=== PATIENT | male | born 1990 | race Caucasian/White ===

== ENCOUNTER 2018-05-01 22:04 | Emergency (ER) | payer SELFPAY ==
[2018-05-01] MEDS ORDERED: methylPREDNISolone Sodium Succinate 125 MG/2 ML SDV IM ONE (22:16)
[2018-05-01] MEDS ORDERED: diphenhydrAMINE 50 MG Cap PO ONE (22:16)
--- NOTE | 2018-05-01 22:25 | EDM.PDOC ---
ED HPI GENERAL MEDICAL PROBLEM - General Chief Complaint: Allergic Reaction Stated Complaint: SWELLING OF THROAT THINK ALERGIC REACTION. Time Seen by Provider: 05/01/18 22:18 - History of Present Illness INITIAL COMMENTS - FREE TEXT/NARRATIVE: HISTORY AND PHYSICAL: History of present illness: Patient's 27-year-old white male presents with concern of throat swelling and 3 had a milkshake earlier today he denies any similar episodes in the past he states he has had no fever chills nausea vomiting or other concerns he had no trouble breathing or speaking. No tongue or lip swelling no rash no other complaints Review of systems: As per history of present illness and below otherwise all systems reviewed and negative. Past medical history: As per history of present illness and as reviewed below otherwise noncontributory. Surgical history: As per history of present illness and as reviewed below otherwise noncontributory. Social history: No reported history of drug or alcohol abuse. Family history: As per history of present illness and as reviewed below otherwise noncontributory. Physical exam: HEENT: Atraumatic, normocephalic, pupils reactive, negative for conjunctival pallor or scleral icterus, mucous membranes moist, throat minimal injection with some edema noted including involvement of the uvula, neck supple, nontender , trachea midline. Lungs: Clear to auscultation, breath sounds equal bilaterally, chest nontender. Heart: S1S2, regular, negative for clicks, rubs, or JVD. Abdomen: Soft, nondistended, nontender. Negative for masses or hepatosplenomegaly. Negative for costovertebral tenderness. Pelvis: Stable nontender. Genitourinary: Deferred. Rectal: Deferred. Extremities: Atraumatic, negative for cords or calf pain. Neurovascular unremarkable. Neuro: Awake, alert, oriented. Cranial nerves II through XII unremarkable. Cerebellum unremarkable. Motor and sensory unremarkable throughout. Exam nonfocal. Diagnostics: Rapid strep Therapeutics: Solu-Medrol 125 mg IM Benadryl 50 mg IM Impression: #1 uvulitis etiology be determined rule out allergic reaction Definitive disposition and diagnosis as appropriate pending reevaluation and review of above. throat Pain Score (Numeric/FACES): 8 - Related Data Allergies Allergy/AdvReac Type Severity Reaction Status Date / Time No Known Allergies Allergy Verified 05/01/18 22:07 Home Meds: Home Meds . [No Known Home Meds] 02/14/15 [History] Past Medical History - Past Health History Medical/Surgical History: Denies Medical/Surgical History HEENT History: Reports: None Cardiovascular History: Reports: None Respiratory History: Reports: None Gastrointestinal History: Reports: None Genitourinary History: Reports: None Musculoskeletal History: Reports: None Neurological History: Reports: None Psychiatric History: Reports: None Endocrine/Metabolic History: Reports: None Hematologic History: Reports: None Immunologic History: Reports: None Oncologic (Cancer) History: Reports: None Dermatologic History: Reports: None - Infectious Disease History Infectious Disease History: Reports: None - Past Surgical History Head Surgeries/Procedures: Reports: None Male Surgical History: Reports: None Social & Family History - Family History Family Medical History: Noncontributory - Tobacco Use Smoking Status *Q: Never Smoker - Caffeine Use Caffeine Use: Reports: Coffee - Recreational Drug Use Recreational Drug Use: No ED ROS ALLERGIC REACTION - Review of Systems Review Of Systems: ROS reveals no pertinent complaints other than HPI. ED EXAM GENERAL NO PERIP PULSE - Physical Exam Exam: See Below (See dictation) Course - Vital Signs Last Recorded V/S: Last Vital Signs Temp 36.1 C 05/01/18 22:08 Pulse 80 05/01/18 22:08 Resp 18 05/01/18 22:08 BP 141/72 H 05/01/18 22:08 Pulse Ox 98 05/01/18 22:08 - Orders/Labs/Meds Orders: Active Orders 24 hr Category Date Time Status CULTURE STREP A CONFIRMATION [RM] Stat Lab 05/01/18 22:17 Results STREP SCRN A RAPID W CULT CONF [RM] Stat Lab 05/01/18 22:17 Ordered Meds: Medications Discontinued Medications Generic Name Dose Route Start Last Admin Trade Name Freq PRN Reason Stop Dose Admin Diphenhydramine HCl 50 mg 05/01/18 22:16 05/01/18 22:20 Benadryl PO 05/01/18 22:17 50 mg ONETIME ONE Administration Methylprednisolone Sodium Succinate 125 mg 05/01/18 22:16 05/01/18 22:20 Solu-Medrol IM 05/01/18 22:17 125 mg ONETIME ONE Administration Departure - Departure Time of Disposition: 22:59 Disposition: Home, Self-Care 01 Condition: Good Clinical Impression: Uvulitis, Allergic reaction - Discharge Information *PRESCRIPTION DRUG MONITORING PROGRAM REVIEWED*: Not Applicable *COPY OF PRESCRIPTION DRUG MONITORING REPORT IN PATIENT CLIFF: Not Applicable Referrals: PCP,None [Primary Care Provider] - Additional Instructions: The following information is given to patients seen in the emergency department who are being discharged to home. This information is to outline your options for follow-up care. We provide all patients seen in our emergency department with a follow-up referral. The need for follow-up, as well as the timing and circumstances, are variable depending upon the specifics of your emergency department visit. If you don't have a primary care physician on staff, we will provide you with a referral. We always advise you to contact your personal physician following an emergency department visit to inform them of the circumstance of the visit and for follow-up with them and/or the need for any referrals to a consulting specialist. The emergency department will also refer you to a specialist when appropriate. This referral assures that you have the opportunity for followup care with a specialist. All of these measure are taken in an effort to provide you with optimal care, which includes your followup. Under all circumstances we always encourage you to contact your private physician who remains a resource for coordinating your care. When calling for followup care, please make the office aware that this follow-up is from your recent emergency room visit. If for any reason you are refused follow-up, please contact the [facility] emergency department at and asked to speak to the emergency department charge nurse. Medrol Benadryl as prescribed follow-up primary medical doctor as needed as discussed avoid possible allergens as discussed return as needed as discussed - My Orders Last 24 Hours: My Active Orders 05/01/18 22:17 CULTURE STREP A CONFIRMATION [RM] Stat STREP SCRN A RAPID W CULT CONF [RM] Stat - Assessment/Plan Last 24 Hours: My Active Orders 05/01/18 22:17 CULTURE STREP A CONFIRMATION [RM] Stat STREP SCRN A RAPID W CULT CONF [RM] Stat
[2018-05-01 23:15] VITALS: BP 104/62
== END 2018-05-01 23:00 | disposition home or self-care (01) ==
LOC: MW.ED 22:04
DX: T78.1XXA Other adverse food reactions, not elsewhere classified, initial encounter (principal); K12.2 Cellulitis and abscess of mouth
CPT/HCPCS: 87081; 87880; 96372; 99283; A9270; J2930

== ENCOUNTER 2018-10-18 15:18 | Emergency (ER) | payer SELFPAY ==
[2018-10-18 15:28] VITALS: BP 113/53
--- NOTE | 2018-10-18 15:56 | EDM.PDOC ---
ED HPI GENERAL MEDICAL PROBLEM - General Chief Complaint: Upper Extremity Injury/Pain Stated Complaint: hand injury Time Seen by Provider: 10/18/18 15:23 Source of Information: Reports: Patient History Limitations: Reports: No Limitations - History of Present Illness INITIAL COMMENTS - FREE TEXT/NARRATIVE: HISTORY AND PHYSICAL: History of present illness: Patient is a 27-year-old male who presents to the ED today with concerns of left hand pain. He states this happened 2-3 days ago when his left finger and hand swelled up. At the swelling has since gone down but the pain and weakness remain the same. He states that he feels as if his clinical staff anesthesiologist is weak. He has taken Tylenol and ibuprofen as needed for pain. He denies any injury to the hand. He states that he does work using his hands but does not recall a specific event that would cause this. Her had any prior injury to this area or any prior concerns. Patient denies any health history. Review of systems: As per history of present illness and below otherwise all systems reviewed and negative. Past medical history: As per history of present illness and as reviewed below otherwise noncontributory. Surgical history: As per history of present illness and as reviewed below otherwise noncontributory. Social history: See social history for further information Family history: As per history of present illness and as reviewed below otherwise noncontributory. Physical exam: General: Patient is alert, oriented, and in no acute distress. He is sitting comfortably on exam table. HEENT: Atraumatic, normocephalic, pupils equal and reactive bilaterally, negative for conjunctival pallor or scleral icterus, mucous membranes moist, TMs normal bilaterally, throat clear, neck supple, nontender, trachea midline. No drooling or trismus noted. No meningeal signs. No hot potato voice noted. Lungs: Clear to auscultation, breath sounds equal bilaterally, chest nontender. Heart: S1S2, regular rate and rhythm without overt murmur Abdomen: Soft, nondistended, nontender. Negative for masses or hepatosplenomegaly. Negative for costovertebral tenderness. Pelvis: Stable nontender. Genitourinary: Deferred. Rectal: Deferred. Skin: Intact, warm, dry. No lesions or rashes noted. Extremities: There is a bruise over the left second metacarpal. Patient does have moderate pain to palpation of the same area. Patient does have a slightly decreased clinical staff anesthesiologist in the left hand. However he did have full clinical staff anesthesiologist in all fingers. Negative Phalen and Tinel sign. Otherwise, atraumatic, negative for cords or calf pain. Neurovascular unremarkable. Neuro: Awake, alert, oriented. Cranial nerves II through XII unremarkable. Cerebellum unremarkable. Motor and sensory unremarkable throughout. Exam nonfocal. Notes: Xray shows no acute osseous abnormality. The pain may be associated with overuse or tendon injury. Wrist splint was provided to patient to use at night or during the day. When the symptoms. Supportive care measures were reviewed and discussed. Discussed the importance for need for follow-up with the plastic surgeon. Voices understanding and is agreeable to plan of care. Denies any further questions or concerns at this time. Diagnostics: Xray hand Therapeutics: None Prescription: Diclofenac Impression: 1. Hand pain, unspecified Plan: 1. Continue to use ibuprofen and Tylenol as needed for pain and swelling. 2. Use a wrist splint at night or during the day if helps symptoms. 3. Continue to ice the area 15 minutes on 20 minutes off for the next 1-2 days. 4. Follow-up with the plastic surgeon "Dr. Bernardo "for definitive treatment in the next 1-2 days. 5. Return to the ED as needed and as discussed. Definitive disposition and diagnosis as appropriate pending reevaluation and review of above. - Related Data Allergies Allergy/AdvReac Type Severity Reaction Status Date / Time No Known Allergies Allergy Verified 10/18/18 15:26 Home Meds: Home Meds . [No Known Home Meds] 02/14/15 [History] Past Medical History - Past Health History Medical/Surgical History: Denies Medical/Surgical History HEENT History: Reports: None Cardiovascular History: Reports: None Respiratory History: Reports: None Gastrointestinal History: Reports: None Genitourinary History: Reports: None Musculoskeletal History: Reports: None Neurological History: Reports: None Psychiatric History: Reports: None Endocrine/Metabolic History: Reports: None Hematologic History: Reports: None Immunologic History: Reports: None Oncologic (Cancer) History: Reports: None Dermatologic History: Reports: None - Infectious Disease History Infectious Disease History: Reports: None - Past Surgical History Head Surgeries/Procedures: Reports: None HEENT Surgical History: Reports: None Cardiovascular Surgical History: Reports: None Respiratory Surgical History: Reports: None GI Surgical History: Reports: None Male Surgical History: Reports: None Endocrine Surgical History: Reports: None Neurological Surgical History: Reports: None Musculoskeletal Surgical History: Reports: None Oncologic Surgical History: Reports: None Dermatological Surgical History: Reports: None Social & Family History - Family History Family Medical History: Noncontributory - Tobacco Use Smoking Status *Q: Current Every Day Smoker Years of Tobacco use: 5 Packs/Tins Daily: 0.5 - Caffeine Use Caffeine Use: Reports: Coffee - Recreational Drug Use Recreational Drug Use: No Review of Systems - Review of Systems Review Of Systems: ROS reveals no pertinent complaints other than HPI. ED EXAM, GENERAL - Physical Exam Exam: See Below (See dictation) Course - Vital Signs Last Recorded V/S: Last Vital Signs Temp 97.1 F 10/18/18 15:26 Pulse 71 10/18/18 15:26 Resp 18 10/18/18 15:26 BP 113/53 L 10/18/18 15:26 Pulse Ox 100 10/18/18 15:26 - Orders/Labs/Meds Orders: Active Orders 24 hr Category Date Time Status DME for Discharge [COMM] Stat Oth 10/18/18 16:32 Ordered Departure - Departure Time of Disposition: 16:31 Disposition: Home, Self-Care 01 Clinical Impression: Pain in unspecified hand Qualifiers: Laterality: left Qualified Code(s): M79.642 - Pain in left hand - Discharge Information Instructions: Tendinitis, [id number] Referrals: PCP,None [Primary Care Provider] - Forms: ED Department Discharge Additional Instructions: The following information is given to patients seen in the emergency department who are being discharged to home. This information is to outline your options for follow-up care. We provide all patients seen in our emergency department with a follow-up referral. The need for follow-up, as well as the timing and circumstances, are variable depending upon the specifics of your emergency department visit. If you don't have a primary care physician on staff, we will provide you with a referral. We always advise you to contact your personal physician following an emergency department visit to inform them of the circumstance of the visit and for follow-up with them and/or the need for any referrals to a consulting specialist. The emergency department will also refer you to a specialist when appropriate. This referral assures that you have the opportunity for follow-up care with a specialist. All of these measure are taken in an effort to provide you with optimal care, which includes your follow-up. Under all circumstances we always encourage you to contact your private physician who remains a resource for coordinating your care. When calling for follow-up care, please make the office aware that this follow-up is from your recent emergency room visit. If for any reason you are refused follow-up, please contact the [facility] Emergency Department at and asked to speak to the emergency department charge nurse. [facility] [address] [place] [id number] [facility] - Plastic Surgery: Dr Bernardo Professional [address], [address] [place] [address] 1. Continue to use ibuprofen and Tylenol as needed for pain and swelling. 2. Use a wrist splint at night or during the day if helps symptoms. 3. Continue to ice the area 15 minutes on 20 minutes off for the next 1-2 days. 4. Follow-up with the plastic surgeon "Dr. Bernardo "for definitive treatment in the next 1-2 days. 5. Return to the ED as needed and as discussed. - My Orders Last 24 Hours: My Active Orders 10/18/18 16:32 DME for Discharge [COMM] Stat - Assessment/Plan Last 24 Hours: My Active Orders 10/18/18 16:32 DME for Discharge [COMM] Stat
--- NOTE | 2018-10-18 16:30 | CR ---
INDICATION: Pain. COMPARISON: None. TECHNIQUE: Two views of the left hand performed portably. FINDINGS: The bones are anatomically aligned. There is no evidence of fracture, erosion or intrinsic bone lesion. The soft tissues appear normal. IMPRESSION: Negative left hand. Dictated by Gurdeep Sarah MD @ Oct 18 2018 4:28PM Signed by Dr. Gurdeep Sarah @ Oct 18 2018 4:30PM
== END 2018-10-18 16:56 | disposition home or self-care (01) ==
LOC: MW.ED 15:18
DX: M79.642 Pain in left hand (principal); F17.210 Nicotine dependence, cigarettes, uncomplicated
CPT/HCPCS: 73120-26-LT; 73120-LT; 99283